=== PATIENT | male | born 1995 | race Caucasian/White ===

== ENCOUNTER 2022-11-14 08:42 | Emergency (ER) | payer OTHER ==
[~2022-11-14] VITALS: Ht 180.3 cm; Wt 61.2 kg
[2022-11-14 08:56] VITALS: BP 140/102
[2022-11-14] MEDS ORDERED: CEPHALEXIN500 MG PO (10:10)
== END 2022-11-14 10:20 | disposition home or self-care (01) ==
LOC: ER 08:42
DX: S60.121A Contusion of right index finger with damage to nail, initial encounter (principal); W23.0XXA Caught, crushed, jammed, or pinched between moving objects, initial encounter; L03.011 Cellulitis of right finger; T63.441A Toxic effect of venom of bees, accidental (unintentional), initial encounter
CPT/HCPCS: 73140; 99283-25; A9270